=== PATIENT | female | born 1990 | race Caucasian/White ===

== ENCOUNTER 2016-03-18 05:42 | Inpatient (IN) ==
[2016-03-18] MEDS ORDERED: Ringers Solution, Lactated 1,000 ML IVC ONE (06:00)
[2016-03-18] MEDS ORDERED: Metoclopramide 10 MG/2 ML VIAL IVP ONE (06:00)
[2016-03-18] MEDS ORDERED: Famotidine 20 MG/2 ML VIAL IVP PRN (06:00)
[2016-03-18] MEDS ORDERED: Naloxone 0.4 MG/ML INJ IVP PRN (06:00)
[2016-03-18] MEDS ORDERED: Ringers Solution, Lactated 1,000 ML IVC SCH (06:00)
[2016-03-18] MEDS ORDERED: Ringers Solution, Lactated 1,000 ML ONE (06:04)
[2016-03-18 06:16] LABS: Basophils % 0.3 %; Eosinophils # 0.1 K/mcL (0.0-0.6); Eosinophils % 0.4 %; Hematocrit 33.2 % (35.3-44.9); Hemoglobin 10.8 g/dL (11.5-15.4); Lymphocytes # 1.8 K/mcL (0.6-4.6); Lymphocytes % 13.3 %; Mean Corpuscular HGB Conc 32.5 g/dL (31.6-35.5); Mean Corpuscular Hemoglobin 26.2 pg (28.0-33.3); Mean Corpuscular Volume 80.6 fL (83.0-100.0); Mean Platelet Volume 9.9 fL (9.4-12.4); Monocytes # 0.8 K/mcL (0.0-1.3); Monocytes % 5.8 %; Neutrophils # 10.7 K/mcL (1.6-8.9); Platelet Count 235 K/mcL (140-400); Red Blood Count 4.12 M/mcL (3.82-4.97); Red Cell Distribution Width 14.4 % (11.5-14.5); Segmented Neutrophils % 79.2 %
[2016-03-18] MEDS ORDERED: CeFAZolin Pre 2,000 MG/100 ML 2,000 MG/100 ML BAG IVPB ONE (06:16)
--- NOTE | 2016-03-18 07:31 | OB/GYN History & Physical ---
Date of Encounter: 03/18/16 Time of Encounter: 07:29 Assessment and Plan (1) 39 weeks gestation of Current visit: Yes Status: Acute (2) Maternal varicella, non-immune Current visit: Yes Status: Acute (3) Previous delivery affecting Current visit: Yes Status: Acute (4) Request for sterilization Current visit: Yes Status: Acute (5) BMI 32.0-32.9,adult Current visit: Yes Status: Acute History of Present Illness HPI: Ms. Smith is a 25 year old female with EDC 03/23/16 at 39 weeks for repeat C/S. See full H&P in eCW. Past Med Surg Social Fam HX - Past Medical History Medical history: no medical history Psychiatric history: no psych history - Past Surgical History Surgical History: - Social History Smoking Status: Never smoker Smokeless Tobacco Status: No Alcohol use: none Drug use: none - Family History Mother Age: 42 Obstetrical History - Pregnancies : 2 Medications and Allergies Vit/Iron Fumarate/FA [ Tablet] 1 each PO DAILY 03/18/16 [ History] Allergies Penicillins Allergy (Verified 03/18/16 05:58) See Comments Results Result Diagrams: 03/18/16 05:58 Abnormal lab results WBC 13.6 K/mcL (4.3-11.1) H 03/18/16 05:58 Hgb 10.8 g/dL (11.5-15.4) L 03/18/16 05:58 Hct 33.2 % (35.3-44.9) L 03/18/16 05:58 MCV 80.6 fL (83.0-100.0) L 03/18/16 05:58 MCH 26.2 pg (28.0-33.3) L 03/18/16 05:58 Neutrophils # 10.7 K/mcL (1.6-8.9) H 03/18/16 05:58 All other labs normal.
--- NOTE | 2016-03-18 07:38 | Anesthesia Evaluation PreOp ---
Date of Encounter: 03/18/16 Time of Encounter: 07:36 - Past History Planned Operation: Repeat Cardiac History: Denies any Significant Hx Pulmonary History: Denies Any Significant HX GOLD CHARMER History: Denies Any Significant HX Other Medical History: Thyroid Anesthesia History: No Prior Anesthetic Complications, Past Anesthesia : Yes (, IUP 39+2 weeks) Alcohol Use: none Drug use: none Medications and Allergies Vit/Iron Fumarate/FA [ Tablet] 1 each PO DAILY 03/18/16 [ History] Allergies Penicillins Allergy (Verified 03/18/16 05:58) See Comments - Meds/Allergy Pre-op Review Medications Reviewed: Yes Allergies Reviewed: Yes Beta Blockers on Current Med List: No Anesthesia Results - Labs 03/18/16 05:58 Anesthesia Exam 3 Vital Signs BP 104/83 Pulse 112 SpO2 95% Height: 5'6'' Weight: 229 lbs NPO (# of Hours): 8 Pain Scale: 0 Pain Scale Used: Numeric (1 - 10) - HEENT Pupil (Motor): EOMI Mallampati: II Teeth: Normal Oral Opening: Greater than 3 - GOLD CHARMER LOC: Oriented GOLD CHARMER Motor: Normal RUE, Normal LUE, Normal RLE, Normal LLE, Normal Face GOLD CHARMER Sensory: Normal: RUE, LUE, RLE, LLE, Face - Cardiac Rhythm: Regular Murmur: None - Pulmonary Breath Sounds: bilateral Clear Respiratory Effort: Symmetrical Anesthesia Assess/Plan ASA Score: 2 Modified Ke Scale for Level of Consciousness: Cooperative, oriented, and tranquil Anesthetic Plan: Regional Monitoring Plan: Standard Monitors Recovery Plan: PACU
[2016-03-18] MEDS ORDERED: EPHEDrine 50 MG/ML VIAL ONE (08:23)
[2016-03-18] MEDS ORDERED: *HR* Morphine Sulfate/PF 5 MG/10 ML AMPUL ONE (08:23)
[2016-03-18] MEDS ORDERED: *HR* FentaNYL (PF) 100 MCG/2 ML VIAL ONE (08:23)
[2016-03-18] MEDS ORDERED: Water for inj. (sterile) 10 ML IV ONE (08:23)
[2016-03-18] MEDS ORDERED: *HR* Oxytocin 10 UNIT/ML VIAL IM ONE (08:23)
--- NOTE | 2016-03-18 09:05 | OB/GYN Procedure Note ---
Section - Date of procedure: 03/18/16 Preop diagnosis: desires repeat , desires sterilization Post-op diagnosis: same Procedure: primary low transverse, bilateral tubal ligation Surgeon: Uma Eric Estimated blood loss (cc): 400 Anesthesiologist: Harman Cook Criminal Justice Professor: Yoli Rodriges Anesthesia Type: Spinal section complications: none Disposition: L&D Recovery Room Specimens: Placenta, Right tube segment, Left tube segment - Infant (s) Infant A Delivery Date: 03/18/16 Infant Delivery Time: Presentation: vertex Position: LOP Route of delivery: other Gender: Male Viability: Viable Pounds: 7 Ounces: 13 Gram Weight: 3530 kg at 1 minute: 8 at 5 minutes: 9 Shoulder Dystocia: not encountered Cord: nuchal cord, 3 umbilical vessels, nuchal reduced - Narrative Narrative: Patient was taken to the operating room and placed in supine position with left uterine displacement following the administration of spinal anesthetic. Skin was then prepped and draped in usual sterile fashion, and a timeout procedure was performed. A Pfannenstiel incision was performed through the previous surgical scar, and extended down to the fascial layer until the abdominal cavity was entered. A bladder flap was then gently created with sharp dissection. A low transverse uterine incision was performed and extended bilaterally with bandage scissors. The membranes were then ruptured with clear fluid present. A viable male infant was delivered from a vertex presentation with scores of 8 and 9 at 1 and 5 minutes respectively and the weighed 7 pounds and 13 ounces. The cord was clamped and cut, and the infant was handed to the nursery team. A sample of cord blood was obtained and the placenta was manually removed. The uterine cavity was wiped clean with wet lap sponge. The uterine incision was closed in a layered fashion with 0 Vicryl suture in a running locking fashion. Good hemostasis was noted.The patient and her were then asked if they still wanted to proceed with a tubal sterilization and they agreed. The left fallopian tube was first identified grasped and traced distally until the fimbriated end was seen and a distal portion tube was doubly ligated with 0 plain suture to incorporate the fimbriated end and the specimen was removed. Good hemostasis was noted and the procedure was repeated in a similar fashion for the right fallopian tube. Again good hemostasis was present. The Paracolic gutters were then gently wiped clean with wet lap sponge. Inspection was then performed with good hemostasis still noted. The fascial layer was closed with 0 PDS Stratafix suture in a running nonlocking fashion. The subcutaneous layer was irrigated with sterile water and then closed with 0 chromic suture in a running nonlocking fashion. The superficial subcutaneous layer was then closed with 4-0 Vicryl suture in a running nonlocking fashion, and continuing to close the skin in a running subcuticular fashion. A piece of Dermabond mesh was then applied over the incision site. Patient tolerated procedure well, all sponge needle and instrument counts reported as correct. Estimated blood loss was 400 mL. The urine in the Short catheter was clear and yellow, and she was taken to recovery room in stable condition.
[2016-03-18] MEDS ORDERED: Oxytocin 20 units/ LR 1000 mL 20 UNIT/1,000 ML BAG IVC ONE (10:16)
--- NOTE | 2016-03-18 10:32 | Anesthesia Evaluation Post Op ---
Date of Encounter: 03/18/16 Time of Encounter: 10:22 - Vital Signs Vital Signs: vss - Lungs Lungs: Clear Ascult./Percussion - Airway Airway: Non-obstructed - Cardiovascular Regular Rate - Mental Status Mental Status: Alert & Oriented, Answers Appropriately - Pain Pain Scale: 0 Pain Scale used: Numeric (1 - 10) - Nausea Vomiting Nausea Vomiting: Not Present - Hydration Hydration: NPO, Short catheter - Discharge PostOp Status: Transfer Patient to floor
[2016-03-18] MEDS ORDERED: Simethicone 80 MG TAB.CHEW PO PRN (11:34)
[2016-03-18] MEDS ORDERED: *HR* Morphine 2 MG/ML SYRINGE IVP PRN (11:34)
[2016-03-18] MEDS ORDERED: Oxytocin 20 units/ LR 1000 mL 20 UNIT/1,000 ML BAG IV SCH (11:34)
[2016-03-18] MEDS ORDERED: Ondansetron 4 MG/2 ML VIAL IVP PRN (11:34)
[2016-03-18] MEDS ORDERED: Metoclopramide 10 MG/2 ML VIAL IVP PRN (11:34)
[2016-03-18] MEDS ORDERED: Prenatal Vit/FA 1 EACH TABLET PO SCH (11:34)
[2016-03-18] MEDS ORDERED: Sennosides 8.6 MG TABLET PO PRN (11:34)
[2016-03-18] MEDS: *HR* HYDROmorphone (PF) 1 MG/ML SYRINGE IVP PRN ×2 (12:19→16:28)
[2016-03-18] MEDS: *HR* OxyCODONE/APAP 5/325 TABLET PO PRN (20:16)
[2016-03-19] MEDS: Ibuprofen 600 MG TABLET PO PRN ×3 (00:56→22:58)
--- NOTE | 2016-03-19 08:04 | OB/GYN Progress Note ---
Date of Encounter: 03/19/16 Time of Encounter: 08:02 - Assessment and Plan (1) 39 weeks gestation of Current Visit: Yes Status: Resolved (2) Maternal varicella, non-immune Current Visit: Yes Status: Chronic (3) Previous delivery affecting Current Visit: Yes Status: Resolved (4) Request for sterilization Current Visit: Yes Status: Resolved (5) BMI 32.0-32.9,adult Current Visit: Yes Status: Chronic (6) delivery delivered Current Visit: Yes Status: Resolved Continue post op care, D/C IV, anticipate discharge home tomorrow. Subjective - Subjective Patient reports: appetite normal, voiding normally, pain well controlled Objective - Vital Signs Latest vital signs: Vital Signs Temp Pulse Resp BP Pulse Ox 03/19/16 03:45 98.2 F 91 16 111/68 96 03/18/16 23:34 98.8 F 99 16 112/75 95 03/18/16 19:40 98.3 F 91 14 118/77 95 03/18/16 14:30 97.9 F 103 16 115/74 97 03/18/16 13:30 97.7 F 101 16 114/70 97 03/18/16 12:31 97.5 F L 105 16 104/65 96 03/18/16 12:00 97.7 F 116 16 142/84 97 03/18/16 11:30 97.9 F 117 16 127/85 95 Intake and Output 03/18/16 03/19/16 03/19/16 23:59 07:59 15:59 Intake Total 1000 / 1000 Output Total 750 / 750 Balance 250 / 250 Intake: Oral 1000 / 1000 Output: Catheter 750 / 750 Other: Weight 101.605 kg Patient Weight 03/19/16 23:59 Weight 101.605 kg - Exam Lungs: bilateral: normal Extremities: Present: normal. Absent: tenderness Abdomen: Present: normal appearance, soft, other (bowel sounds present). Absent : distention, tenderness Incision: Present: normal, dry, intact Uterus: Present: normal, firm Fundal Height: 2 (U-2)
[2016-03-19] MEDS: *HR* OxyCODONE/APAP 5/325 TABLET PO PRN ×2 (12:16→19:36)
[2016-03-20 07:53] VITALS: BP 123/80
--- NOTE | 2016-03-20 08:39 | Discharge Summary ---
Date of Encounter: 03/20/16 Time of Encounter: 08:34 - Discharge Diagnosis (1) 39 weeks gestation of Priority: Secondary Status: Resolved (2) delivery delivered Priority: Primary Status: Resolved - Discharge Medications Prescriptions: OxyCODONE/APAP 5/325 [Percocet 5/325 MG] 1 each PO Q4HR PRN #30 tablet PRN Reason: Moderate pain 4-6 Ibuprofen [Motrin] 600 mg PO Q6HR PRN #60 tablet PRN Reason: Cramping Docusate [Colace] 100 mg PO BID #60 capsule Ferrous Sulfate 325 mg PO DAILY #30 tablet Home Medications: Vit/Iron Fumarate/FA [ Tablet] 1 each PO DAILY 03/18/16 [ History] Docusate [Colace] 100 mg PO BID #60 capsule 03/20/16 [Rx] Ferrous Sulfate 325 mg PO DAILY #30 tablet 03/20/16 [Rx] Ibuprofen [Motrin] 600 mg PO Q6HR PRN #60 tablet 03/20/16 [Rx] OxyCODONE/APAP 5/325 [Percocet 5/325 MG] 1 each PO Q4HR PRN #30 tablet 03/20/16 [Rx] Allergies/Adverse Reactions: Allergies Penicillins Allergy (Verified 03/18/16 05:58) See Comments Data Procedures and tests throughout hospitalization: Laboratory Tests 03/18/16 05:58 WBC 13.6 H RBC 4.12 Hgb 10.8 L Hct 33.2 L MCV 80.6 L MCH 26.2 L MCHC 32.5 RDW 14.4 Plt Count 235 MPV 9.9 Immature Gran % 1.0 Seg Neutrophils % 79.2 Lymphocytes % 13.3 Monocytes % 5.8 Eosinophils % 0.4 Basophils % 0.3 Neutrophils # 10.7 H Lymphocytes # 1.8 Monocytes # 0.8 Eosinophils # 0.1 Basophils # 0.0 Date of admission: 03/18/16 05:42 Primary care physician: Merlyn Bonds CNP Discharging clinician: Una Watts Anticipated date of discharge: 03/20/16 - Patient Status Disposition: Home, Self-Care Condition: Good Functional capacity at discharge: independent ambulation Overall status at discharge: patient is progressing back to baseline - Discharge Instructions Follow Up With: Merlyn Bonds CNP [Primary Care Provider] - - Diet and Activity Activity: increase activity as tolerated, resume usual activities as tolerated Diet: regular diet Hospital Course Procedures: Rpt c/s w/ BPS Reason for admission: section (request permanent sterilization) Delivery: section Episiotomy: none Laceration: none Other procedures: tubal ligation complications: none Discharge diagnosis: IUP at term delivered baby: male Time Attestation: Total time spent providing and/or coordinating discharge services: Time Spent: Less than 30 minutes - VTE Documentation of Mechanical Device: Intermittent pneumatic compression device Exam - Constitutional Vitals: Temp Pulse Resp BP Pulse Ox 98.4 F 81 16 123/80 96 03/20/16 07:52 03/20/16 07:52 03/20/16 08:15 03/20/16 07:52 03/20/16 07:52 General appearance IM: A&O X 3, pleasant, no acute distress - Respiratory Respiratory exam: Present: CTAB. Absent: respiratory distress - Cardiovascular Cardiovascular exam IM: Present: RRR. Absent: irregular rhythm - GI/Abdominal GI/Abdominal exam IM: normal bowel sounds, soft, no peritoneal signs Incision: normal, dry, intact - Rectal Rectal exam: deferred - Uterine Tone: Firm Uterus Position: 1 Finger Below Umbilicus - Extremities Exam Extremities exam IM: Present: pedal edema, warm. Absent: calf tenderness - Neurological Exam Neurological exam: alert, no focal deficits
[2016-03-20 08:47] LABS: Basophils % 0.3 %; Eosinophils # 0.1 K/mcL (0.0-0.6); Eosinophils % 1.4 %; Hematocrit 29.9 % (35.3-44.9); Hemoglobin 9.4 g/dL (11.5-15.4); Immature Granulocytes % 0.6 % (0-4); Lymphocytes # 1.5 K/mcL (0.6-4.6); Lymphocytes % 15.8 %; Mean Corpuscular HGB Conc 31.4 g/dL (31.6-35.5); Mean Corpuscular Volume 82.6 fL (83.0-100.0); Mean Platelet Volume 9.8 fL (9.4-12.4); Monocytes # 0.5 K/mcL (0.0-1.3); Monocytes % 5.5 %; Neutrophils # 7.3 K/mcL (1.6-8.9); Platelet Count 191 K/mcL (140-400); Red Blood Count 3.62 M/mcL (3.82-4.97); Red Cell Distribution Width 14.7 % (11.5-14.5); Segmented Neutrophils % 76.4 %
[2016-03-20] MEDS: *HR* OxyCODONE/APAP 5/325 TABLET PO PRN (09:47)
== END 2016-03-20 13:00 | disposition home or self-care (01) | DRG 766 ==
LOC: 1NENULAB 05:42 → 1NENUOBS 11:31